=== PATIENT | male | born 1985 | race Caucasian/White ===

== ENCOUNTER → 2024-01-31 16:42 | Outpatient (REF) | payer OTHER, SELFPAY | LOC: RAD 16:42 | PROVIDERS: ATTENDING PHYSICIAN Family Medicine | DX: S20.36 Insect bite (nonvenomous) of front wall of thorax (principal); M25.561 Pain in right knee | CPT/HCPCS: 73564 ==

== ENCOUNTER → 2024-03-06 06:46 | Outpatient (REF) | payer OTHER, SELFPAY | LOC: PAVMRI 06:46 | PROVIDERS: ATTENDING PHYSICIAN Family Medicine | DX: M25.561 Pain in right knee (principal) | CPT/HCPCS: 73721 ==